=== PATIENT | male | born 1955 ===

== ENCOUNTER 2017-01-14 11:29 | Day surgery (SDC) | payer OTHER, MEDICAID ==
[2017-01-02 09:36] VITALS: BMI 20.4
[2017-01-14 12:22] VITALS: TEMP 98
[2017-01-14] MEDS ORDERED: Midazolam 2 MG/2 ML VIAL ONE (13:32)
[2017-01-14] MEDS ORDERED: Propofol 10 mg/ml Inj (20 ML) ONE (13:32)
[2017-01-14] MEDS ORDERED: Sodium Chloride 0.9% 1,000 ML IV SCH (14:15)
[2017-01-14 14:24] VITALS: RESP 14
[2017-01-14 14:26] VITALS: O2SAT 98
[2017-01-14 15:03] VITALS: BP 103/64; PULSE 104
== END 2017-01-14 14:27 | disposition short-term general hospital (02) ==
LOC: ENDO 11:29
PROVIDERS: ATTEND Internal Medicine
DX: C21.8 Malignant neoplasm of overlapping sites of rectum, anus and anal canal (principal)
CPT/HCPCS: 45391; J2250; J2704; J3010; J7040 ×2